=== PATIENT | female | born 1990 | race Caucasian/White ===

== ENCOUNTER 2023-07-17 11:15 | Outpatient (RCR) | payer BC, SELFPAY ==
--- NOTE | 2023-05-20 13:30 | OPREHPOC ---
Outpatient Therapy Plan of Care This is a Multidisciplinary Plan of Care that may contain components documented by all disciplines (PT, OT, and ST.) PT Problem 1 PT Problem #1 Knowledge Deficit PT Goal 1 Goal 1* indep with HEP 2* correct position of shoulder with exercises PT Problem 2 PT Problem #2 Pain PT Goal 1 Goal 1* pt report pain of 2/10 at worst 2* pt report times of NO pain 3* self assessment Oswestry score of 8% limitation in activity level PT Problem 3 PT Problem #3 Impaired Strength PT Goal 1 Goal increase R and L scapular-thoracic strength, to improve position of scapula and strength to perform home, self and work tasks: pt perform prone scapular retraction, 20 reps with good control and scapular muscle recruitment: 1* R with arm at 90' 2* R arm overhead 3* L with arm at 90' 4* L with arm overhead 5* prone plank for 70 sec hold 6* in standing and performing active R and L shoulder motions--no winging of scapula
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
== END 2023-07-17 14:12 | disposition home or self-care (01) ==
LOC: ANHPT 11:15
DX: M54.6 Pain in thoracic spine (principal)
CPT/HCPCS: 97014; 97110; 97140; 97161; 97530; 99199; G0283